=== PATIENT | male | born 1950 | race Caucasian/White ===

== ENCOUNTER → 2016-10-07 | Outpatient (CLI) | payer MEDICARE ==
[~2016-10-07] VITALS: Ht 180.3 cm; Wt 113.4 kg
[~2016-10-07] MED LIST: AMLO10TA2 PO; ASPI-482 PO; LIDOCAINE 1% / SOD BICARB 8.4% 20 ML VIAL. IJ ONE; LOSA1TAB17 PO; METF-620 PO
[2016-10-07 09:05] VITALS: BP 126/65
--- NOTE | 2016-10-07 23:22 | OP ---
DATE OF SURGERY: 10/07/2016 OPERATION: Transrectal ultrasound of prostate and needle biopsy. SURGEON: Latesha Kc MD. ANESTHESIA: Local. PREOPERATIVE DIAGNOSIS: Elevated prostate-specific antigen. POSTOPERATIVE DIAGNOSIS: Elevated prostate-specific antigen. INDICATIONS: The patient is a very pleasant 66-year-old white male with history of elevated PSA and family history of prostate cancer in one of his brothers. The patient's PSA currently at 7 range. Last year, it was in the 6 range; several years ago, it was in the 4 range. I have discussed with the patient the options, alternatives, benefits, risks and possible complications of transrectal ultrasound of prostate and needle biopsies to rule out adenocarcinoma of the prostate. The patient understands this and does wish to proceed with the operation. DESCRIPTION OF PROCEDURE: After obtaining informed consent, the patient was taken to the ultrasound suite and placed in the left lateral decubitus position. The patient had taken his antibiotics preprocedurally. He has antibiotics to take post-procedurally. He has been off his aspirin for the past week. Rectal examination was then performed. The patient was placed in the left lateral decubitus position. The patient had good sphincter tone. Prostate is smooth, nontender, without nodules, overall size 30 grams by palpation. Transrectal ultrasound was then performed with the biplanar probe. Prostate was inspected in both transverse and sagittal planes. Bilateral prosthetic block was placed with 1% lidocaine. Prostate was evaluated in transverse and sagittal planes. No obvious hypoechoic areas were identified in the peripheral zone. The patient's prostate size was calculated to be 44.6 cubic cm. Following this, Sextant biopsies were then obtained with the [employer] biopty gun and biopty needle. Biopsies were sent for pathologic analysis. Following this, the probe was removed from the patient. He tolerated the procedure very well with only small amount of oozing from the biopsy sites. The patient was given post-procedure instructions and told to take his antibiotics postprocedurally and we will contact the patient back with the results of his biopsies when they become available. He is also scheduled for a followup appointment in Urology office on 10/25/2015 to discuss results and proceed accordingly. LATESHA KC MD DR: CARLIN/miguelina JOB#: [id number] / [id number]
--- NOTE | 2016-10-09 21:59 | PATHOLOGY ---
PATHOLOGY REPORT * * * * * * * * FINAL DIAGNOSIS: A. Prostate tissue, left base prostate needle biopsy: - Benign prostatic tissue showing focal mild chronic inflammation. B. Prostate tissue, left mid prostate needle biopsy: - Benign prostatic tissue showing small focus of glandular atrophy and mild chronic inflammation. C. Prostate tissue, left apex prostate needle biopsy: - Benign prostatic tissue showing focal glandular atrophy. D. Prostate tissue, right base prostate needle biopsy: - Benign prostatic tissue showing small focus of glandular atrophy. E. Prostate tissue, right mid prostate needle biopsy: - PROSTATIC ADENOCARCINOMA, ACINAR TYPE, JENIFER'S PATTERNS 3+ 3 (SCORE 6), SPANNING 0.15 CM. SEE SYNOPTIC REPORT. F. Prostate tissue, right apex prostate needle biopsy: - Benign prostatic tissue. Comment: The case is also examined by Dr. Carter, who concurs with the diagnoses. (JPM:mgr; d/t: 10/08/2016) Procedure: Needle Biopsy Specimen Site: Prostatic structure Tumor Site: Prostatic structure TUMOR Histologic Type: Adenocarcinoma (acinar, not otherwise specified) Histologic Grade Hope Pattern: Jenifer pattern (specifiy) Primary (Predominant) Pattern: Grade 3 Secondary (Worst Remaining) Pattern: Grade 3 Total Jenifer Score: 6 EXTENT Tumor Quantitation Number of Cores Positive: 1 Total Number of Cores: 12 Proportion (%) of prostatic tissue involved by tumor: 1 Length of prostatic tissue involved by tumor Total Linear Millimeters of Carcinoma (mm): 1.5 Total Linear Millimeters of Needle Core Tissue (mm): 190 Proportion (%) of Prostatic Tissue Involved by Tumor for Core with the Greatest Amount of Tumor: 7.5 ACCESSORY FINDINGS Lymph-Vascular Invasion: Not identified: . Perineural Invasion: Not identified: . ADDITIONAL NON-TUMOR Additional Pathologic Findings: None identified REPORT ELECTRONICALLY SIGNED BY: Stephan Morgan M.D. DATE/TIME: 10/09/2016 17:50 * * * * * * * * GROSS PATHOLOGY: A. Received in formalin labeled "Juvenal Galarza, left base," are two needle cores of underwood soft tissue measuring 1.8 and 2.2 cm in length and less than 0.1 cm in diameter. The specimen is submitted entirely in cassette A1. B. Received in formalin labeled "left mid," are two needle cores of underwood soft tissue measuring 1.5 and 1.7 cm in length and less than 0.1 cm in diameter. The specimen is submitted entirely in cassette B1. C. Received in formalin labeled "left apex," are two needle cores of underwood soft tissue measuring 1.2 and 1.5 cm in length and less than 0.1 cm in diameter. The specimen is submitted entirely in cassette C1. D. Received in formalin labeled "right base," are two needle cores of underwood soft tissue measuring 1.0 and 1.2 cm in length and less than 0.1 cm in diameter. The specimen is submitted entirely in cassette D1. E. Received in formalin labeled "right mid," are two needle cores of underwood soft tissue measuring 1.8 and 2.0 cm in length and less than 0.1 cm in diameter. The specimen is submitted entirely in cassette E1. F. Received in formalin labeled "right apex," are two needle cores of underwood soft tissue measuring 1.3 and 1.8 cm in length and less than 0.1 cm in diameter. The specimen is submitted entirely in cassette F1. (JPM; 10/07/16) INITIAL CPT CODE(S): A; 30521 B; 94424 C; 20553 D; 36786 E; 68784 F; 61389 Professional services performed [place] [facility] [place] [address] Technical services performed by [facility] at [address] [place] [address], [address], [place] [address]. SPECIMEN(S) RECEIVED: A.Left base prostate, needle biopsy B.Left mid prostate, needle biopsy C.Left apex prostate, needle biopsy D.Right base prostate, needle biopsy E.Right mid prostate, needle biopsy F.Right apex prostate, needle biopsy CLINICAL HISTORY: Elevated PSA, 45 g prostate PATIENT: JUVENAL GALARZA SR /AGE: 508/23/1950 (Age: 66) PATIENT #: [id number] ALT CASE #: SPECIMEN COLLECTION DATE: 10/07/2016 SPECIMEN RECEIVED DATE: 10/07/2016 [facility] - [address] [place] [address] - PHONE: [phone] * * * END OF REPORT * * *
== END | disposition home or self-care (01) ==
LOC: US 12:04
PROVIDERS: ATTEND Urology
DX: R97.20 Elevated prostate specific antigen [PSA] (principal)
CPT/HCPCS: 55700; G0416

== ENCOUNTER 2017-09-02 06:15 | Outpatient (CLI) | payer MEDICARE ==
[2017-09-02] MEDS ORDERED: IODIXANOL 320 MG/ML 100 ML VIAL. (07:14)
[2017-09-02 07:28] LABS: ANION GAP 5 (6-14); BLOOD UREA NITROGEN 31 mg/dL (8-26); CALCIUM 8.5 mg/dL (8.5-10.1); CARBON DIOXIDE 31 mmol/L (21-32); CHLORIDE 104 mmol/L (98-107); CREATININE 2.2 mg/dL (0.7-1.3); GFR 30.1; GLUCOSE 160 mg/dL (70-99); POTASSIUM 3.9 mmol/L (3.5-5.1); SODIUM 140 mmol/L (136-145)
[2017-09-02] MEDS: IV NORMAL SALINE 1000ML BAG 1,000 ML IV (07:30)
[2017-09-02 07:31] LABS: HEMATOCRIT 35.6 % (39.0-53.0); HEMOGLOBIN 12.1 g/dL (13.0-17.5); MEAN CORPUSCULAR HEMOGLOBIN 29 pg (25-35); MEAN CORPUSCULAR HGB CONC 34 g/dL (31-37); MEAN CORPUSCULAR VOLUME 84 fL (79-100); PLATELET COUNT 248 x10^3/uL (140-400); RED BLOOD COUNT 4.24 x10^6/uL (4.30-5.70); RED CELL DISTRIBUTION WIDTH 14.9 % (11.5-14.5)
[2017-09-02 07:52] LABS: PROTHROMBIN TIME PATIENT 13.1 SEC (11.7-14.0)
[2017-09-02] MEDS ORDERED: VERAPAMIL 5 MG/2 ML VIAL. ×2 (12:00→12:02)
[2017-09-02] MEDS ORDERED: HEPARIN for IV BOLUS 10,000 UNIT/10 ML VIAL. (12:01)
[2017-09-02] MEDS ORDERED: MIDAZOLAM HCL/PF 2 MG/2 ML VIAL. (12:01)
[2017-09-02] MEDS ORDERED: fentaNYL PF VIAL 100 MCG/2 ML VIAL (12:01)
[2017-09-02] MEDS ORDERED: NITROGLYCERIN 200 MCG/2 ML SYRINGE FOR CATH/VASC LAB. (12:02)
[2017-09-02] MEDS ORDERED: LIDOCAINE 2% 20 ML VIAL. (12:03)
[2017-09-02] MEDS: MIDAZOLAM HCL/PF 2 MG/2 ML VIAL. IV (12:52)
[2017-09-02] MEDS: fentaNYL PF VIAL 100 MCG/2 ML VIAL IV (12:52)
[2017-09-02] MEDS: IODIXANOL 320 MG/ML 100 ML VIAL. IART (12:53)
[2017-09-02] MEDS: LIDOCAINE 2% 20 ML VIAL. IJ (12:53)
== END 2017-09-02 14:55 | disposition home or self-care (01) ==
LOC: CCL 06:15
DX: I20.0 Unstable angina (principal); I12.9 Hypertensive chronic kidney disease with stage 1 through stage 4 chronic kidney disease, or unspecified chronic kidney disease; E11.22 Type 2 diabetes mellitus with diabetic chronic kidney disease; N18.3 Chronic kidney disease, stage 3 (moderate); E78.5 Hyperlipidemia, unspecified; Z79.82 Long term (current) use of aspirin; Z79.899 Other long term (current) drug therapy; Z90.49 Acquired absence of other specified parts of digestive tract; Z98.890 Other specified postprocedural states; Z80.42 Family history of malignant neoplasm of prostate; M19.90 Unspecified osteoarthritis, unspecified site; Z79.84 Long term (current) use of oral hypoglycemic drugs
CPT/HCPCS: 36415; 80048; 85027; 85610; 93458; 99152; 99153; C1769; C1771; C1892; G0269; J1644; J2250; J3010; J7030